=== PATIENT | male | born 1960 | race Caucasian/White ===

== ENCOUNTER 2024-08-29 21:27 | Emergency (ER) | payer BC ==
[~2024-08-29] VITALS: Ht 172.7 cm; Wt 77.1 kg
[2024-08-29] MEDS ORDERED: ONDANSETRON 4 MG/2 ML VIAL ONE (22:14)
[2024-08-29] MEDS: IV NORMAL SALINE 1000 ML BAG IV ONE (22:15)
[2024-08-29] MEDS: ONDANSETRON 4 MG/2 ML VIAL IV ONE (22:18)
[2024-08-29 22:38] LABS: BASOPHILS % (AUTO) 0.2 % (0.0-2.0); EOSINOPHILS % (AUTO) 0.6 % (0.0-7.0); HEMATOCRIT 34.8 % (36.7-47.1); HEMOGLOBIN 11.6 g/dL (12.5-16.3); LYMPHOCYTES # (AUTO) 0.1 K/uL (0.8-4.8); MEAN CORPUSCULAR HEMOGLOBIN 30.1 uug (23.8-33.4); MEAN CORPUSCULAR HGB CONC 33 g/dL (32.5-36.3); MEAN CORPUSCULAR VOLUME 90.2 fL (73.0-96.2); MONOCYTES % (AUTO) 0.5 % (0.0-11.0); NEUTROPHILS # (AUTO) 8.2 K/uL (1.8-8.9); NEUTROPHILS % (AUTO) 97.7 % (38.5-71.5); PLATELET COUNT (AUTO) 201 K/uL (152-348); RED BLOOD CELL COUNT(AUTO) 3.86 MIL/uL (4.06-5.63); RED CELL DISTRIBUTION WIDTH 16.1 % (12.1-16.2); WHITE BLOOD COUNT (AUTO) 8.4 K/uL (3.6-10.2)
[2024-08-29 22:44] LABS: DIFFERENTIAL COMMENT 1
[2024-08-29 22:46] LABS: CREATININE 0.9 mg/dL (0.6-1.3); POTASSIUM 3.8 mmol/L (3.5-5.1)
[2024-08-29 22:52] LABS: ALBUMIN 2.5 g/dL (3.4-5.0); BILIRUBIN,DIRECT 0.3 mg/dL (0.0-0.2); BILIRUBIN,TOTAL 1.1 mg/dL (0.2-1.0); TOTAL PROTEIN, SERUM 5.7 g/dL (6.4-8.2)
[2024-08-29 23:31] VITALS: BP 108/62; O2SAT 95
== END 2024-08-29 23:32 | disposition home or self-care (01) ==
LOC: ER 21:41
DX: R55 Syncope and collapse (principal); C85.91 Non-Hodgkin lymphoma, unspecified, lymph nodes of head, face, and neck; R42 Dizziness and giddiness; R11.0 Nausea; R00.0 Tachycardia, unspecified
CPT/HCPCS: 36415; 85025; A4606; A4663; J2405; J7040